=== PATIENT | female | born 1980 | race Caucasian/White ===

== ENCOUNTER → 2019-07-02 | Outpatient (CLI) | payer MEDICAID ==
[~2019-07-02] MED LIST: ONDANSETRON HCL 8 MG TABLET PO PRN; ONDANSETRON HCL INJ/PF 4 MG/2 ML SDV IV ONE; ONDANSETRON HCL INJ/PF 4 MG/2 ML SDV ONE; OXYCODONE HCL IR 5 MG TABLET ONE; PHENAZOPYRIDINE HCL 200 MG TABLET ONE; PROMETHAZINE HCL 25 MG TABLET ONE; PROMETHAZINE HCL 25 MG TABLET PO PRN; RINGERS SOLUTION,LACTATED 1,000 ML IV PRN
[2019-07-02 17:10] LABS: APPEARANCE,URINE CLEAR; BILIRUBIN,URINE NEGATIVE (NEGATIVE); COLOR,URINE YELLOW; GLUCOSE, URINE NEGATIVE (NEGATIVE); KETONES,URINE NEGATIVE (NEGATIVE); LEUKOCYTE ESTERASE,URINE NEGATIVE (NEGATIVE); NITRITE,URINE NEGATIVE (NEGATIVE); PROTEIN,URINE NEGATIVE (NEGATIVE); URINE SPECIFIC GRAVITY 1.011; UROBILINOGEN,URINE NEGATIVE mg/dL (<2.0)
[2019-07-02 17:25] LABS: URINE AMPHETAMINES SCREEN NEGATIVE; URINE BARBITURATES SCREEN NEGATIVE; URINE BENZODIAZEPINES SCREEN NEGATIVE; URINE COCAINE SCREEN NEGATIVE; URINE METHADONE SCREEN NEGATIVE; URINE PHENCYCLIDINE SCREEN NEGATIVE
[2019-07-02 17:27] LABS: URINE MARIJUANA (THC) SCREEN UNCONFIRMED POSITIVE
--- NOTE | 2019-07-02 18:14 | Admission Physical ---
Datetime Report Generated by CPN: 07/02/2019 18:13 CURRENT ADMISSION Chief Complaint: Uterine Contractions Indication for Induction: Not Applicable Admit Impression : , Intrauterine Admit Impression- Other: Pt feels ill. She also has pelvic pain. Admit Plan: Observation/Evaluation ALLERGIES Medication Allergies: Yes Medication Allergies: acetaminophen (07/02/2019) Latex: Latex Allergies OBSTETRICAL HISTORY EDC: 11/17/2019 00:00 : 5 Para: 4 Term: 4 : 0 SAB: 0 IAB: 0 Ectopic: 0 Livin Cesareans: 0 VBACs: 0 Multiple Births: 0 Gestational Diabetes: No Rh Sensitization: No Incompetent Cervix: No DIEGO: No Infertility: No ART Treatment: No Uterine Anomaly: No IUGR: No Hx Previous C/S: No Macrosomia: No Hx Loss/Stillborn: No PIH: No Hx : No Placenta Previa/Abruption: No Depression/PP Depression: No PTL/PROM: No Post Hemorrhage: No Current Procedures: Ultrasound MEDICAL HISTORY Diabetes: No Blood Transfusion: No Pulmonary Disease (Asthma, TB): No Breast Disease: No Hypertension: No Workforce Specialist Surgery: No Heart Disease: No Hosp/Surgery: Yes Autoimmune Disorder: Yes Anesthetic Complications: No Kidney Disease: No Abnormal Pap Smear: No Neuro/Epilepsy: No Psychiatric Disorders: No Other Medical Diseases: No Hepatitis/Liver Disease: No Significant Family History: No Varicosities/Phlebitis: No Trauma/Violence : No Thyroid Dysfunction: No Medical History Comments: RHEUMATIOD ARHTRITIS, FIBROMYALGIA CHILDBIRTH INFECTIOUS HISTORY Gonorrhea: No Genital Herpes: No Chlamydia: No Tuberculosis: No Syphilis: No Hepatitis: No HIV/AIDS Exposure: No Rash or Viral Illness: No HPV: No PHYSICAL EXAM General: Normal HEENT: Normal Neurologic: Normal Thyroid: Normal Heart: Normal Lungs: Normal Breast: Deferred Back: Normal Abdomen: Normal Genitourinary Exam: Normal Extremities: Normal DTRs: Normal Pelvic Type: Adequate Physical Exam Comments: Pt appears ill with URI Vital Signs: Reviewed VAGINAL EXAM Dilatation: 0 Effacement: 50 Station: -2 MEMBRANES Pooling: Negative Membranes: Intact FETUS A EGA: 20.2 FHR- Baseline: 140 Admit Comment: Admit for iv fluids and repeat cervical lenth in the am. INFORMED CONSENT Signature: with User ID: [email or web address]
[2019-07-02 18:34] LABS: HEMATOCRIT 33.5 % (36.0-47.0); HEMOGLOBIN 11.4 g/dL (12.0-15.5); MEAN CORPUSCULAR HEMOGLOBIN 30.2 pg (27.0-33.4); MEAN CORPUSCULAR VOLUME 89 fl (80-97); PLATELET COUNT 264 10^3/uL (150-450); RED BLOOD COUNT 3.76 10^6/uL (3.72-5.28)
[2019-07-02] MEDS: RINGERS SOLUTION,LACTATED 1,000 ML IV PRN (19:00)
--- NOTE | 2019-07-02 19:26 | RADIOLOGY REPORT (SQ) ---
EXAM DESCRIPTION: U/S OB LIMITED COMPLETED DATE/TIME: 07/02/2019 5:39 pm REASON FOR STUDY: CL . The patient is 20 weeks 2 days . COMPARISON: None. TECHNIQUE: Limited transvaginal and transabdominal grayscale ultrasound for evaluation of specific r equested obstetrical parameters. LIMITATIONS: None. FINDINGS: CERVICAL LENGTH: 2.2 cm. Closed. LVP: 5.1 cm. FHR: 143 beats per minute. PRESENTATION: Transverse. PLACENTA: Posterior. ANATOMY: Not assessed IMPRESSION: LIMITED OBSTETRICAL ULTRASOUND WITH MEASURED PARAMETERS DELINEATED ABOVE. Trimester of : Second trimester - 13 weeks 1 day to 27 weeks 6 days. TECHNICAL DOCUMENTATION: JOB ID: [id number] 2010 [employer]- All Rights Reserved Reading location - IP/workstation name: [email or web address]
[2019-07-02] MEDS: PHENAZOPYRIDINE HCL 200 MG TABLET PO SCH (21:12)
[2019-07-02] MEDS: OXYCODONE HCL IR 5 MG TABLET PO PRN (21:57)
[2019-07-02 22:08] LABS: CHLAM PCR NOT DETECTED (NOT DETECT)
[2019-07-03] MEDS: RINGERS SOLUTION,LACTATED 1,000 ML IV PRN (04:50)
[2019-07-03] MEDS: OXYCODONE HCL IR 5 MG TABLET PO PRN (04:51)
[2019-07-03] MEDS: PHENAZOPYRIDINE HCL 200 MG TABLET PO SCH (04:59)
--- NOTE | 2019-07-03 07:49 | PDOC DISCHARGE SUMMARY ---
General - Admit/Disc Date/PCP Admission Date/Primary Care Provider: 07/02/19 18:51 AMA PATTERSON MD Discharge Date: 07/03/19 - Discharge Diagnosis (1) Short cervical length during in second trimester Is this a current diagnosis for this admission?: Yes - Additional Information Resuscitation Status: Full Code Discharge Diet: As Tolerated Discharge Activity: Balance Activity w/Rest, Pelvic Rest Home Medications: Pnv W-O Ca No5/Fe Fumarate/FA [-U Multiple Vitamin Capsule] 1 cap PO DAILY 05/11/13 History of Present Illness Patient complains of: Malaise History of Present Illness: CHRIS DARNELL is a 38 year old female she presents at 20 wks with malaise. Hospital Course Hospital Course: During the hospitalization she improved with the IV fluids. She was also noted to have a shortend cervix. Physical Exam - Physical Exam Vital Signs: Intake & Output 07/02/19 07/03/19 07/04/19 06:59 06:59 06:59 Intake Total 1000 Balance 1000 Weight 66.6 kg General appearance: PRESENT: no acute distress, well-developed, well-nourished Head exam: PRESENT: atraumatic, normocephalic GI/Abdominal exam: PRESENT: normal bowel sounds, soft. ABSENT: distended, guarding, mass, organolmegaly, rebound, tenderness Result Laboratory Results: 07/02/19 18:15 07/02/19 07/02/19 16:45 18:15 WBC 12.0 H RBC 3.76 Hgb 11.4 L Hct 33.5 L MCV 89 MCH 30.2 MCHC 34.0 RDW 13.0 Plt Count 264 Urine Color YELLOW Urine Appearance CLEAR Urine pH 6.0 Ur Specific [place] 1.011 Urine Protein NEGATIVE Urine Glucose (UA) NEGATIVE Urine Ketones NEGATIVE Urine Blood NEGATIVE Urine Nitrite NEGATIVE Ur Leukocyte Esterase NEGATIVE Urine WBC (Auto) 0 Urine RBC (Auto) 0 Plan Discharge Plan: Home on vaginal progesterone. This was chosen over cerclage because of her previous successful outcomes. Acute Heart Failure - Is this a Heart Failure Patient?: No
[2019-07-03 08:36] VITALS: BP 101/54
--- NOTE | 2019-07-03 11:04 | RADIOLOGY REPORT (SQ) ---
EXAM DESCRIPTION: U/S OB LIMITED COMPLETED DATE/TIME: 07/03/2019 6:47 am REASON FOR STUDY: cervical lenth COMPARISON: None. TECHNIQUE: Limited transvaginal grayscale ultrasound for evaluation of specific requested obstetrica l parameters. LIMITATIONS: None. FINDINGS: CERVICAL LENGTH: 2.2 cm. Closed. RADHA: 13.3 cm. FHR: 144 beats per minute. PRESENTATION: Cephalic. PLACENTA: Posterior. ANATOMY: Not assessed OTHER: No other significant findings. IMPRESSION: LIMITED OBSTETRICAL ULTRASOUND WITH MEASURED PARAMETERS DELINEATED ABOVE. Trimester of : Second trimester - 13 weeks 1 day to 27 weeks 6 days. TECHNICAL DOCUMENTATION: JOB ID: [id number] [employer]- All Rights Reserved Reading location - IP/workstation name: [email or web address]
== END ==
LOC: EDSTATUS 15:35 → LC 15:39 → LR 18:51 → UNDOADMOB 18:51 → UNDODISOB 07-03 09:11
PROVIDERS: ATTEND Obstetrics & Gynecology
PROC: 4A1HXCZ Monitoring of Products of Conception, Cardiac Rate, External Approach (ICD-10-PCS; principal; 2019-07-02)
DX: O26.872 Cervical shortening, second trimester (principal); O09.522 Supervision of elderly multigravida, second trimester; O26.812 Pregnancy related exhaustion and fatigue, second trimester; O26.892 Other specified pregnancy related conditions, second trimester; R10.2 Pelvic and perineal pain; R10.9 Unspecified abdominal pain; M54.5 Low back pain; O99.332 Smoking (tobacco) complicating pregnancy, second trimester; F17.210 Nicotine dependence, cigarettes, uncomplicated; M06.9 Rheumatoid arthritis, unspecified; M79.7 Fibromyalgia; Z3A.20 20 weeks gestation of pregnancy; Z88.6 Allergy status to analgesic agent; Z91.040 Latex allergy status
CPT/HCPCS: 59899; 36415; 87086; 85027; 87077; 86592; 81001; 87081; 80307; 87491; 87591; 76815; J3490 ×3; J2405

== ENCOUNTER 2019-07-07 10:21 | Outpatient (CLI) | payer MEDICAID ==
[2019-07-07 11:12] LABS: APPEARANCE,URINE CLEAR; BILIRUBIN,URINE NEGATIVE (NEGATIVE); COLOR,URINE YELLOW; GLUCOSE, URINE NEGATIVE (NEGATIVE); KETONES,URINE NEGATIVE (NEGATIVE); LEUKOCYTE ESTERASE,URINE NEGATIVE (NEGATIVE); NITRITE,URINE NEGATIVE (NEGATIVE); PROTEIN,URINE NEGATIVE (NEGATIVE); URINE SPECIFIC GRAVITY 1.019
[2019-07-07 11:15] LABS: ADD MANUAL MICROSCOPIC YES
[2019-07-07 11:32] LABS: BACTERIA,URINE 1+ /HPF; WBC,URINE 0-1 /HPF
[2019-07-07 11:34] LABS: URINE AMPHETAMINES SCREEN NEGATIVE; URINE BARBITURATES SCREEN NEGATIVE; URINE BENZODIAZEPINES SCREEN NEGATIVE; URINE COCAINE SCREEN NEGATIVE; URINE METHADONE SCREEN NEGATIVE; URINE PHENCYCLIDINE SCREEN NEGATIVE
[2019-07-07 11:38] LABS: URINE MARIJUANA (THC) SCREEN UNCONFIRMED POSITIVE
== END 2019-07-07 11:57 | disposition home or self-care (01) ==
LOC: LC 10:21
PROVIDERS: ATTEND Obstetrics & Gynecology Gynecology
PROC: 4A1HXCZ Monitoring of Products of Conception, Cardiac Rate, External Approach (ICD-10-PCS; principal; 2019-07-07)
DX: O09.522 Supervision of elderly multigravida, second trimester (principal); O99.332 Smoking (tobacco) complicating pregnancy, second trimester; F17.210 Nicotine dependence, cigarettes, uncomplicated; Z3A.20 20 weeks gestation of pregnancy
CPT/HCPCS: 59899; 81001; 80307; G0480 ×2; 80349

== ENCOUNTER → 2019-07-22 | Outpatient (CLI) | payer MEDICAID ==
--- NOTE | 2019-07-22 15:37 | RADIOLOGY REPORT (SQ) ---
EXAM DESCRIPTION: U/S OB 14+ TRNABD 1GES W/O DOP COMPLETED DATE/TIME: 07/22/2019 2:26 pm REASON FOR STUDY: ENCTR FOR SUPERVISION OF OTHER NORMAL , SECOND TRIMESTER (Z34.82) Z34.82 ENCOUNTER FOR SUPRVSN OF NORMAL , SECOND TRI COMPARISON: None. TECHNIQUE: Static and Dynamic grayscale imaging performed of gravid uterus using transabdominal appr oach. Additional selected color Doppler and spectral images recorded. All stored on PACS. LIMITATIONS: None. FINDINGS: FETUSES SEEN:1 EGA: 23 week 2 day. Calculated using BPD,FL,HC,AC documented on images. No discrepancy with clinical dates. FRANKIE: 11/16/2019. EFW: 578 grams PERCENTILE: 42%. RADHA: Largest pocket 4.8 cm. PLACENTA: Posterior. GRADE: I PRESENTATION: Breech. ANATOMY: HEART RATE: 144 beats per minute. FOUR CHAMBER HEART: Visualized. THREE VESSEL CORD: Yes. CORD INSERTION: Visualized. KIDNEYS AND BLADDER: Visualized. Appear normal. STOMACH: Visualized. Appears normal. SPINE: Normal as visualized. BRAIN AND LATERAL VENTRICLES: Visualized. Appear normal. OTHER: No other significant finding. MATERNAL ADNEXA: Maternal ovaries not visualized. CERVICAL LENGTH: 3.2 cm. Closed. OTHER: No other significant finding. IMPRESSION: LIVING INTRAUTERINE . ESTIMATED GESTATIONAL AGE 23 WEEK 2 DAY. NO VISUALIZED ANOMALIES. Trimester of : Second trimester - 13 weeks 1 day to 27 weeks 6 days. TECHNICAL DOCUMENTATION: JOB ID: [id number] [employer]- All Rights Reserved Reading location - IP/workstation name: [email or web address]
== END ==
LOC: RAD 12:57
PROVIDERS: ATTEND Midwife
DX: Z34.82 Encounter for supervision of other normal pregnancy, second trimester (principal)
CPT/HCPCS: 76805